=== PATIENT | male | born 1960 | race Caucasian/White ===

== ENCOUNTER → 2017-07-19 | Outpatient (CLI) | payer OTHER ==
--- NOTE | 2017-07-19 08:32 | DIAGNOSTIC IMAGING REPORT ---
MRI OF THE RIGHT SHOULDER WITHOUT CONTRAST CLINICAL HISTORY: Right shoulder tendinitis. Chronic right shoulder pain. COMPARISON STUDY: Right shoulder radiograph June 17, 2017. TECHNIQUE: Utilizing 1.5 Jewels magnet and dedicated coil, multiplanar, multiecho imaging of the right shoulder was performed without intravenous or intra-articular contrast. FINDINGS: Alignment of the right shoulder is anatomic. No marrow replacement or marrow edema is present. There is mild osteoarthritis of the glenohumeral and acromioclavicular joints. Several T1 and T2 hypointense abnormalities within the distal anterior fibers of supraspinatus correspond to the calcific abnormalities on prior radiographs. This reflects calcific tendinitis of distal supraspinatus. Partial-thickness bursal and articular surface tears of distal supraspinatus are noted. There is no full-thickness tear of supraspinatus. There is tendinopathy with suspected partial thickness tear of distal infraspinatus. Teres minor and subscapularis are intact. The proximal long head of biceps tendon is intact. Note is made of increased T2 signal and fraying of the posterior superior labrum consistent with a labral tear. IMPRESSION: 1. Calcific tendinitis of distal supraspinatus. Partial thickness tears of distal supraspinous and infraspinatus with no full-thickness rotator cuff tear. No tendon retraction or muscular atrophy. 2. Posterior superior labral tear. 3. 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 Electronically signed by: Jose Hammer M.D. 07/19/2017 8:30 AM Dictated Date/Time: 07/19/2017 8:17 AM
== END | disposition home or self-care (01) ==
LOC: C.MRI 07:14
PROVIDERS: ATTEND Orthopaedic Surgery
DX: M75.31 Calcific tendinitis of right shoulder (principal); M75.101 Unspecified rotator cuff tear or rupture of right shoulder, not specified as traumatic; S43.401A Unspecified sprain of right shoulder joint, initial encounter; X58.XXXA Exposure to other specified factors, initial encounter

== ENCOUNTER → 2017-09-04 | Outpatient (CLI) | payer OTHER ==
[2017-09-04 12:22] LABS: BASO % 0.2 %; BASO ABS # 0.01 K/uL (0-0.2); COMPLETE YES; EOS % 2.9 %; HEMATOCRIT 43.2 % (42-52); IG% 0.2 %; LYMPH % 28.1 %; LYMPH ABS # 1.36 K/uL (1.2-3.4); MEAN CELL VOLUME 93.7 fL (80-100); MEAN CORPUSCULAR HEMOGLOBIN 32.3 pg (25-34); MEAN CORPUSCULAR HGB CONC 34.5 g/dl (32-36); MEAN PLATELET VOLUME 9.7 fL (7.4-10.4); MONO % 10.3 %; NEUT % 58.3 %; PLATELET COUNT 249 K/uL (130-400); RED BLOOD COUNT 4.61 M/uL (4.7-6.1); WHITE BLOOD COUNT 4.84 K/uL (4.8-10.8)
[2017-09-04 12:42] LABS: BLOOD UREA NITROGEN 20 mg/dl (7-18); BUN/CREATININE RATIO 17.6 (10-20); CALCIUM 9.3 mg/dl (8.5-10.1); CARBON DIOXIDE 29 mmol/L (21-32); CHLORIDE 108 mmol/L (98-107); CREATININE 1.16 mg/dl (0.60-1.40); GLUCOSE 88 mg/dl (70-99); POTASSIUM 4.8 mmol/L (3.5-5.1); SODIUM 141 mmol/L (136-145)
== END | disposition home or self-care (01) ==
LOC: C.LAB1850 10:38
PROVIDERS: ATTEND Orthopaedic Surgery
DX: Z01.818 Encounter for other preprocedural examination (principal); M25.511 Pain in right shoulder

== ENCOUNTER → 2017-09-12 | Day surgery (SDC) | payer OTHER ==
[2017-08-27 16:08] VITALS: Ht 175.3 cm; Wt 79.5 kg
[~2017-09-12] VITALS: Ht 175.3 cm; Wt 79.5 kg
[~2017-09-12] MED LIST: ATROPINE SULFATE 0.1 MG/ML 5ML SYR IV PRN; BUPIVACAINE/EPINEPHRINE 0.25% 1:200,000 30 ML VIAL ONE; CLINDAMYCIN PHOS 150 MG/ML 2 ML VIAL IV SCH; DEXAMETHASONE SOD INJ 4 MG/ML VIAL ONE; EpHEDrine SULFATE 50MG/5ML SYR ONE; EpINEphrine INJ 1MG/ML AMP 1 MG/ML AMP ONE; FENTANYL CITRATE INJ 50 MCG/1 ML 2 ML VIAL IV PRN; FENTANYL CITRATE INJ 50 MCG/1 ML 2 ML VIAL ONE; GLYCOPYRROLATE INJ 0.2 MG/ML VIAL ONE; KETO10TA PO; KETOROLAC TROMETHAMINE 30 MG/ML VIAL IV. PRN; LABETALOL HCL IV 5 MG/ML 20ML IV PRN; LACTATED RINGER'S 1000ML 1,000 ML IV SCH; LIDOCAINE HCL 2% 2 ML VIAL (20MG/ML) ONE; MIDAZOLAM HCL 1 MG/ML 2ML VIAL ONE; NEOSTIGMINE METHYLSULFATE 5 MG/5 ML SYR ONE; ONDANSETRON INJ 2 MG/ML 2 ML VIAL IV PRN; ONDANSETRON INJ 2 MG/ML 2 ML VIAL ONE; OXYC-57 PO; PROMETHAZINE HCL INJ 12.5 MG in SODIUM CHLORIDE 0.9% 50ML 50 ML IV PRN; PROPOFOL IV EMULSION 10 MG/ML 20 ML VIAL IV ONE; ROPIVACAINE 0.5% 5 MG/ML 30 ML VIAL ONE; SODIUM CHLORIDE 0.9% 1000ML 1,000 ML IV SCH
--- NOTE | 2017-09-12 07:01 | History & Physical Bridge - SC ---
H&P Re-Evaluation Bridge Note: I have examined the patient, reviewed the History & Physical and in the interval since the performance of the History & Physical I have noted the following changes of clinical significance: No changes noted
--- NOTE | 2017-09-12 14:29 | Discharge Instructions-SurgCtr ---
Discharge Instructions Date of Service Sep 12, 2017. Visit Reason for Visit: Right Shoulder Calcific Tendinitis, Pain Discharge Discharge Diagnosis / Problem: SAME ABOVE Discharge Goals Goal(s): Decrease discomfort, Improve function Activity Recommendations Activity Limitations: as noted below Lifting Limitations: until after follow-up appointment Exercise/Sports Limitations: until after follow-up appointment Shower/Bathe: tomorrow Anesthesia . Post Anesthesia Instructions: If you have had General Anesthesia or IV Sedation: * Do not drive today. * Resume driving when surgeon permits. * Do not make important decisions or sign legal documents today. * Call surgeon for: 1. Temperature elevations greater than 101 degrees F. 2. Uncontrollable pain. 3. Excessive bleeding. 4. Persistent nausea and vomiting. 5. Medication intolerance (nausea, vomiting or rash). * For nausea and vomiting use only clear liquids such as: tea, soda, bouillon until nausea subsides, then gradually increase diet as tolerated. * If you have any concerns or questions, call your surgeon's office. If physician is unavailable and it is an emergency, call 911 or go to the nearest emergency room. . Instructions / Follow-Up Instructions / Follow-Up MEDICATIONS: * Resume previous medications unless instructed otherwise by your surgeon. * Always take pain medication on a full stomach or with food to avoid upset stomach. * Do not drink alcohol or drive while taking narcotics. * Ibuprofen or Tylenol may be taken if narcotic not needed. SPECIAL CARE INSTRUCTIONS: __ None _X_ Keep extremity elevated and iced x 48 hours; apply ice 20-30 minutes 8-10 times/day. May remove at night. _X_ Sling (MAY REMOVE AFTER 48 HOURS ONLY TO SHOWER AND FOR THERAPY) _X_24 hrs/day __ Remove at night __ Shoulder Immobilizer __ 24 hrs/day __ Remove at night _X_ Dressing __ Maintain until seen in office, may shower with plastic over site _X_ Remove dressings in 24-48 hours and then may shower _X_ Cover incisions with band-aids after showering __ Do not remove steri-strips Call physician if chills or temperature rises above 102 degrees or pain unrelieved by prescribed pain medications at . . Diet Recommendations Home Diet: no limitations Fluid Restriction: None Procedures Procedures Performed: Right Shoulder Arthrocscopy, Extensive Debridement, Small Rotator Cuff Repair, Acromioplast Pending Studies Studies pending at discharge: no Work Instructions Return To Work: after follow-up Medical Emergencies . Who to Call and When: Medical Emergencies: If at any time you feel your situation is an emergency, please call 911 immediately. . Non-Emergent Contact Non-Emergency issues call your: Primary Care Provider Call Non-Emergent contact if: you have a fever, temperature is above 101.5 . . "Provider Documentation" section prepared by Eleuterio Wilson. .
[2017-09-12 15:17] VITALS: TEMP 36.3
[2017-09-12 15:41] VITALS: BP 122/76; PULSE 46; O2SAT 100
--- NOTE | 2017-09-12 15:43 | Anesthesia Progress Nt - [facility] ---
Anesthesia Post Op Note Date & Time Sep 12, 2017 at 15:43 Vital Signs Pain Intensity: 1 Vital Signs Past 12 Hours Date Time Temp Pulse Resp B/P (MAP) Pulse Ox O2 Delivery O2 Flow Rate FiO2 09/12/17 15:41 46 16 122/76 (91) 100 Room Air 09/12/17 15:17 36.3 50 18 127/80 (96) 100 Room Air 09/12/17 15:07 53 14 98 09/12/17 15:07 52 14 09/12/17 15:06 118/72 09/12/17 15:02 52 14 09/12/17 15:02 51 14 96 09/12/17 15:01 126/74 09/12/17 14:57 50 14 09/12/17 14:57 50 14 96 09/12/17 14:56 117/74 09/12/17 14:55 36.6 48 16 117/74 96 Room Air 09/12/17 14:52 54 16 09/12/17 14:52 55 16 96 09/12/17 14:51 130/69 09/12/17 14:47 53 13 09/12/17 14:47 57 13 100 09/12/17 14:46 123/68 09/12/17 14:42 47 13 09/12/17 14:42 46 13 99 09/12/17 14:41 122/68 09/12/17 14:39 48 13 09/12/17 14:39 46 13 99 09/12/17 14:36 132/72 09/12/17 14:34 50 11 09/12/17 14:34 49 11 100 09/12/17 14:31 126/65 09/12/17 14:29 36.4 54 12 142/72 98 Mask 7 09/12/17 14:29 51 12 09/12/17 14:29 52 12 98 09/12/17 14:28 142/72 09/12/17 13:24 59 09/12/17 13:24 60 25 100 09/12/17 13:23 48 09/12/17 13:23 46 16 100 09/12/17 13:22 45 16 100 09/12/17 13:22 48 09/12/17 13:21 120/82 09/12/17 13:19 58 15 100 09/12/17 13:19 58 09/12/17 13:18 54 12 100 09/12/17 13:18 56 09/12/17 13:17 55 14 100 09/12/17 13:17 54 09/12/17 13:16 132/87 09/12/17 13:12 60 17 100 09/12/17 13:12 60 09/12/17 13:11 134/84 09/12/17 13:07 50 09/12/17 13:07 49 0 98 09/12/17 13:02 51 0 98 09/12/17 13:02 52 09/12/17 11:59 37.0 53 16 132/90 (104) 98 Room Air Notes Mental Status: alert / awake / arousable, participated in evaluation Pt Amnestic to Procedure: Yes Nausea / Vomiting: adequately controlled Pain: adequately controlled Airway Patency, RR, SpO2: stable & adequate BP & HR: stable & adequate Hydration State: stable & adequate Anesthetic Complications: no major complications apparent
--- NOTE | 2017-09-12 18:11 | OPERATIVE REPORT ---
DATE OF OPERATION: 09/12/2017 PREOPERATIVE DIAGNOSES: Severe external impingement and calcific tendonitis of the right shoulder. POSTOPERATIVE DIAGNOSES: Same. PROCEDURE: Right shoulder diagnostic arthroscopy with extensive debridement including removal of calcific tendinitis, acromioplasty and rotator cuff repair. SURGEON: Dr. Nav Mcfadden. RESET MERCHANDISER: Koko Wilson PA-C, whose assistance was necessary for positioning the arm and helping with instrumentation. ANESTHESIA: General with a right interscalene nerve block. COMPLICATIONS: None. CONDITION: Stable to PACU. INDICATIONS: Phillip is a pleasant 57-year-old male who has worked for a longtime as government clerk at [employer]. His arm was constantly away from the body. Over time, he has developed significant right shoulder pain. MRI and clinical examination were diagnostic for severe external impingement and calcific tendinitis. After failing extensive conservative treatment, he elected to proceed with a right shoulder arthroscopy. DESCRIPTION OF PROCEDURE: On 09/12/2017, he arrived at the [facility] for the above procedure. He was seen in the preoperative holding area and the operative extremity was identified and signed. He was given a preoperative antibiotic and a right interscalene nerve block. He was taken back to the operating room, laid on the table in supine position and put under general anesthesia. He was then put into the beachchair position. The right shoulder was prepped and draped in the sterile fashion. Time-out was done and the patient and operative extremity was properly identified. A scope was introduced into the posterior portal. Diagnostic arthroscopy showed no cartilage damage to the humeral head or the glenoid. The rotator cuff looked intact from the articular side. The biceps tendon was intact and went through a normal size biceps jese mechanism. There was a little fraying of the anterior labrum. There was a slight superior labral tear, but no redness or additional pathology. An anterior portal was made. A shaver was used to do a limited debridement of the labrum. The biceps tendon was pulled into the joint without any signs of additional pathology. The scope was then put into the subacromial space. A lateral portal was made. A shaver was used to do a complete subacromial and subdeltoid bursectomy. An ablator was used to tease the coracoacromial ligament off the undersurface of the acromion and a 5-0 wes was used to complete an acromioplasty of a large Bigliani type 3 acromion. A shaver was used to remove any excess debris and attention was turned to the rotator cuff. An additional anterolateral portal was made and a Tressa cannula was placed in the anterolateral portal. A shaver was used to debride the bursal side of the rotator cuff. There was an area of calcific tendinitis in the anterior supraspinatus. Significant time was spent removing the calcific tendinitis. Extensive debridement was done around this area. Multiple pictures were taken. A probe was used to ensure there was complete resection of the lesion. After the calcific tendinitis had been completely removed, there was a defect of the rotator cuff involving about 50% of the footprint. The tuberosity was prepared with a ring curette. The rotator cuff was then fixed with an Arthrex modified SpeedBridge configuration using a single medial row 4.75-mm BioComposite SwiveLock suture anchor loaded with 2 fiber tapes. The tapes were passed through the tendon separately and brought down to a single lateral row SwiveLock suture anchor. This gave a nice knotless rotator cuff repair. Multiple pictures were taken. Arthroscopic instruments were removed from the shoulder. Portal sites were closed with 3-0 nylon. He was then placed in a soft dressing and regular arm sling. He was then extubated, transferred to a litter and taken to the postanesthesia care unit in stable condition. He tolerated the procedure well. I attest to the content of the Intraoperative Record and any orders documented therein. Any exception s are noted below.
--- NOTE | 2017-09-12 18:36 | [facility] Post Operative Brief Note ---
Immediate Operative Summary Operative Date Sep 12, 2017. Pre-Operative Diagnosis Right Shoulder Calcific Tendinitis, Pain Post-Operative Diagnosis Same Procedure(s) Performed Right Shoulder Arthrocscopy, Extensive Debridement, Small Rotator Cuff Repair, Acromioplast Surgeon Dr. Marii Mcfadden Clinical Support Associate Surgeon(s) Jorge Wilson PA-C Estimated Blood Loss 5 cc Findings as above Specimens None Complication(s) None Disposition Recovery Room / PACU
== END | disposition home or self-care (01) ==
LOC: X.SURG 11:54
PROVIDERS: ATTEND Orthopaedic Surgery
DX: M75.41 Impingement syndrome of right shoulder (principal); M75.31 Calcific tendinitis of right shoulder

== ENCOUNTER 2017-10-20 21:59 | Emergency (ER) | payer OTHER ==
[~2017-10-20] VITALS: Ht 175.3 cm; Wt 80.0 kg
[~2017-10-20 21:59] MED LIST changes: -ATROPINE SULFATE 0.1 MG/ML 5ML SYR IV PRN; -BUPIVACAINE/EPINEPHRINE 0.25% 1:200,000 30 ML VIAL ONE; -CLINDAMYCIN PHOS 150 MG/ML 2 ML VIAL IV SCH; -DEXAMETHASONE SOD INJ 4 MG/ML VIAL ONE; -EpHEDrine SULFATE 50MG/5ML SYR ONE; -EpINEphrine INJ 1MG/ML AMP 1 MG/ML AMP ONE; -FENTANYL CITRATE INJ 50 MCG/1 ML 2 ML VIAL IV PRN; -FENTANYL CITRATE INJ 50 MCG/1 ML 2 ML VIAL ONE; -GLYCOPYRROLATE INJ 0.2 MG/ML VIAL ONE; -KETOROLAC TROMETHAMINE 30 MG/ML VIAL IV. PRN; -LABETALOL HCL IV 5 MG/ML 20ML IV PRN; -LACTATED RINGER'S 1000ML 1,000 ML IV SCH; -LIDOCAINE HCL 2% 2 ML VIAL (20MG/ML) ONE; -MIDAZOLAM HCL 1 MG/ML 2ML VIAL ONE; -NEOSTIGMINE METHYLSULFATE 5 MG/5 ML SYR ONE; -ONDANSETRON INJ 2 MG/ML 2 ML VIAL IV PRN; -ONDANSETRON INJ 2 MG/ML 2 ML VIAL ONE; -PROMETHAZINE HCL INJ 12.5 MG in SODIUM CHLORIDE 0.9% 50ML 50 ML IV PRN; -PROPOFOL IV EMULSION 10 MG/ML 20 ML VIAL IV ONE; -ROPIVACAINE 0.5% 5 MG/ML 30 ML VIAL ONE; -SODIUM CHLORIDE 0.9% 1000ML 1,000 ML IV SCH
[2017-10-20 22:01] VITALS: TEMP 36.4; Ht 175.3 cm; Wt 80.0 kg
[2017-10-20] MEDS ORDERED: DiphenhydrAMINE HCL 50 MG/ML VIAL IV STA (22:10)
[2017-10-20] MEDS ORDERED: METHYLPREDNISOLONE 125 MG VIAL IV STA (22:10)
[2017-10-20] MEDS ORDERED: FAMOTIDINE 20MG/5ML IV PUSH IV STA (22:10)
--- NOTE | 2017-10-20 22:14 | EMERGENCY ROOM VISIT NOTE ---
History Report prepared by Ben: Forrest Brown Under the Supervision of: Dr. Jose Manuel Solorzano D.O. First contact with patient: 22:03 Chief Complaint: ALLERGIC REACTION Stated Complaint: HIVES History of Present Illness The patient is a 57 year old male who presents to the Emergency Room with complaints of a worsening global rash that began last night before bed, one day prior to arrival. The patient denies using any new soaps, detergents, food products, clothing, or medications. He denies taking any medications in the past two weeks other than Benadryl. He has been taking Benadryl regularly without any improvement of the rash. The patient came into the emergency department today because he could feel some tightening in his throat. He states that he is wheezing and coughing. His last dosage of Benadryl was at 1800, 4 hours prior to arrival. Source of History: patient Onset: One night prior to arrival. Position: other (Global) Quality: other (Rash) Timing: worsening Associated Symptoms: + cough Note: Pt reports tight throat and wheezing. Review of Systems See HPI for pertinent positives and negatives. A total of ten systems were reviewed and were otherwise negative. Past Medical & Surgical Patient denies any significant histories. Family History Diabetes mellitus FH: cancer Social History Smoking Status: Never Smoker Drug Use: none Marital Status: Occupation Status: employed Current/Historical Medications No Active Prescriptions or Reported Meds Allergies Coded Allergies: Penicillins (Verified Allergy, Mild, RASH HIVES, 09/12/17) Physical Exam Vital Signs Date Time Temp Pulse Resp B/P (MAP) Pulse Ox O2 Delivery O2 Flow Rate FiO2 10/20/17 22:49 59 16 153/84 98 Room Air 10/20/17 22:01 36.4 65 20 143/88 98 Room Air Physical Exam GENERAL: Awake, alert, well-appearing, in no distress HENT: Normocephalic, atraumatic. Oropharynx unremarkable. EYES: Normal conjunctiva. Sclera non-icteric. NECK: Supple. No nuchal rigidity. FROM. No JVD. RESPIRATORY: Clear to auscultation. CARDIAC: Regular rate, normal rhythm. Extremities warm and well perfused. Pulses equal. ABDOMEN: Soft, non-distended. No tenderness to palpation. No rebound or guarding. No masses. RECTAL: Deferred. MUSCULOSKELETAL: Chest examination reveals no tenderness. The back is symmetrical on inspection without obvious abnormality. There is no CVA tenderness to palpation. No joint edema. LOWER EXTREMITIES: Calves are equal size bilaterally and non-tender. No edema. No discoloration. NEURO: Normal sensorium. No sensory or motor deficits noted. SKIN: Hives diffusely across trunk. Medical Decision & Procedures Medications Administered Medications (Trade) Dose Ordered Sig/Nelson Route Start Time Stop Time Status Last Admin Dose Admin Methylprednisolone Sodium Succinate (Solu-Medrol IV) 125 mg NOW STAT IV 10/20/17 22:10 10/20/17 22:12 DC 10/20/17 22:22 125 MG Famotidine (Pepcid 20mg Iv Push) 20 mg ONE STAT IV 10/20/17 22:10 10/20/17 22:12 DC 10/20/17 22:23 20 MG Diphenhydramine HCl (Benadryl Inj) 50 mg NOW STAT IV 10/20/17 22:10 10/20/17 22:12 DC 10/20/17 22:22 50 MG ED Course 2203: The patient was evaluated in room C3. A complete history and physical exam was performed. 2210: Benadryl HCl 50 mg IV, Famotidine 20 mg IV, Solu-Medrol 125 mg IV. 2349: I reevaluated the patient at this time. The rash is still currently present but her feels improved. There is no airway symptoms, and the cough is resolved. The patient will be discharged home. Medical Decision Differential diagnosis: allergic reaction, dermitis, urticaria, anxiety, medication reaction. Recheck the patient patient resting in no distress; patient states he feels much improved the rash is still present. Patient was advised to get outpatient allergy testing. Patient will be treated with Pepcid prednisone and Benadryl as an outpatient as well. Patient currently at 2350 has no evidence of anaphylactic shock Blood Pressure Screening Patient's blood pressure: Elevated blood pressure Blood pressure disposition: Elevated BP felt to be situational Impression Primary Impression: Allergic reaction Scribe Attestation The scribe's documentation has been prepared under my direction and personally reviewed by me in its entirety. I confirm that the note above accurately reflects all work, treatment, procedures, and medical decision making performed by me. Departure Information Dispostion Home / Self-Care Prescriptions Prednisone (Prednisone) 50 Mg Tab 50 MG PO DAILY for 4 Days, #4 TAB Prov: Jose Manuel Solorzano, DO 10/21/17 Referrals Dev Nguyễn D.O. (PCP) Patient Instructions ED Allergic Reaction General Other, [facility] Additional Instructions Take Benadryl, prednisone, Pepcid as advised. Return for worsening rash shortness breath or any concerns
[2017-10-21] MEDS ORDERED: PRED50TA PO
[2017-10-21 00:07] VITALS: BP 125/81; PULSE 62; O2SAT 97
== END 2017-10-21 00:07 | disposition home or self-care (01) ==
LOC: C.EDB 21:59 → C.EDC 10-21 00:07
DX: T78.40XA Allergy, unspecified, initial encounter (principal); X58.XXXA Exposure to other specified factors, initial encounter; Z83.3 Family history of diabetes mellitus; Z80.9 Family history of malignant neoplasm, unspecified